=== PATIENT | female | born 1945 | race Caucasian/White ===

== ENCOUNTER 2018-08-06 19:39 | Emergency (ER) | payer OTHER, MEDICARE ==
--- NOTE | 2018-08-06 20:43 | EDPHY ---
HPI/HX/ROS/PE/MDM Narrative: CHIEF COMPLAINT: Right eye vision change HPI: The patient is a 72-year-old female with a history of prior cataract surgery. She has no history of cardiovascular or neurologic disease. At approximately 10:30 a.m. This morning, she had sudden onset of painless alvarez/ splint awaiting spots in her right eye only. This initially showed up as a crescent shape but has since largely resolved with only some alvarez spots remaining. She does complain of a mild ache to her right eye. She has completely normal vision in her left eye. She denies facial numbness, weakness or difficulty walking. REVIEW OF SYSTEMS: Aside from elements discussed in the HPI, a comprehensive 10-point review of systems was reviewed and is negative. PMH: Includes multiple surgeries, cataract surgery, no history of stroke. SOCIAL HISTORY: Visiting from [place]. Denies drug abuse. PHYSICAL EXAM: General:Patient is alert, in no acute distress. ENT:Eyes are normal to inspection. ENT inspection normal. Pupils equal round reactive to light bilaterally. Funduscopic exam limited by contracted pupils but no obvious hemorrhage or abnormality seen. Neck: Normal inspection. Full range of motion. Respiratory:No respiratory distress. Breath sounds normal bilaterally. Cardiovascular: Regular rate and rhythm. Strong peripheral pulses. Normal cap refill. Neuro: Oriented x3. Normal motor function. Normal sensory function. Cranial nerves 2-12 intact. No pronator drift. Normal gait. Normal speech. EOMI. ED Course: The intra-ocular pressure as measured with the tonometer is [address] Wright from Ophthalmology at 8:45 p.m.. He is in agreement with the plan to discharge the patient home and he will see her 1st thing in the morning. The patient is comfortable with this plan. MDM: This patient presents with monocular visual symptoms. I see no signs of stroke , glaucoma, foreign body or eye trauma. I think retinal detachment is much less likely but needs to be ruled out by an front end technician. General Time Seen by Provider: 08/06/18 19:56 Initial Vital Signs: Initial Vital Signs Temperature (C) 36.7 C 08/06/18 19:41 Heart Rate 77 08/06/18 19:41 Respiratory Rate 17 08/06/18 19:41 Blood Pressure 140/81 H 08/06/18 19:41 O2 Sat (%) 96 08/06/18 19:41 O2 Delivery Mode Room Air Allergies/Adverse Reactions: ibuprofen Allergy (Intermediate, Verified 08/06/18 19:40) ULCER povidone-iodine [From Betadine] Allergy (Intermediate, Verified 08/06/18 19:40) BLISTER soap [From Betadine] Allergy (Intermediate, Verified 08/06/18 19:40) BLISTER amoxicillin trihydrate [From Augmentin] Allergy (Unknown, Verified 08/06/18 19: 40) bupropion HCl [From Wellbutrin] Allergy (Unknown, Verified 08/06/18 19:40) potassium clavula *RETIRED-06/18/12 [From Augmentin] Allergy (Unknown, Verified 08/06/18 19:40) sulfamethoxazole [From Bactrim] Allergy (Unknown, Verified 08/06/18 19:40) trimethoprim [From Bactrim] Allergy (Unknown, Verified 08/06/18 19:40) Home Medications: Medication Instructions Recorded ARIPiprazole [Abilify 5 mg (*)] 5 mg PO HS 06/14/14 Ascorbic Acid [Vitamin C 500 mg 1,000 mg PO DAILY 06/14/14 (*)] Aspirin [Aspirin 81mg (*)] 81 mg PO DAILY 06/14/14 Calcium Carb W/Vit D [Calcium Carb 500 mg PO BID 06/14/14 W/Vit D 500/200 (*)] Citalopram Hydrobromide [Celexa] 40 mg PO DAILY 06/14/14 Clorazepate Dipotassium [Tranxene 7.5 mg PO DAILY PRN 06/14/14 T-Tab (*)] Herbals/Supplements -Info Only 1 ea PO DAILY 06/14/14 Levothyroxine [Synthroid 200 mcg 200 mcg PO DAILY06 06/14/14 (*)] Mirtazapine [Remeron] 60 mg PO HS 06/14/14 Multivitamins [Multivitamin (*)] 1 each PO DAILY 06/14/14 lamoTRIgine [LamICTAL 100 MG (*)] 200 mg PO BID 06/14/14 traMADol [Ultram 50 mg (*)] 50 mg PO TID 06/14/14 Myrbetriq 08/06/18 Departure - Departure Disposition: Home, Routine, Self-Care Clinical Impression: Visual loss, right eye Condition: Good Instructions: Blurred Vision (ED) Additional Instructions: Call the office of Dr. Wright tomorrow after 8am and they will arrange for evaluation tomorrow. Return to the ED for worsening headache, loss of vision or other concerns. Referrals: Dedrick Wright MD [Medical Doctor] - As per Instructions
[2018-08-06 21:05] VITALS: BP 120/85
== END 2018-08-06 21:04 | disposition home or self-care (01) ==
DX: H53.9 Unspecified visual disturbance (principal); Z86.79 Personal history of other diseases of the circulatory system; Z86.69 Personal history of other diseases of the nervous system and sense organs

== ENCOUNTER 2018-08-09 19:19 | Emergency (ER) | payer OTHER, MEDICARE ==
[2018-08-09 19:33] VITALS: BP 153/72
[2018-08-09] MEDS ORDERED: AZITHROMYCIN 250 MG TAB PO ONE (19:38)
--- NOTE | 2018-08-09 19:40 | EDPHY ---
H & P Stated Complaint: RIGHT EAR PAIN, [facility] hemmorhage BEHIND RIGHT EYE Time Seen by Provider: 08/09/18 19:36 HPI/ROS: CHIEF COMPLAINT: Right ear pain HISTORY OF PRESENT ILLNESS: The patient is a 72-year-old female who comes to the emergency department complaining right-sided ear pain that began yesterday morning. No fever. No sinus congestion or sore throat. She was here 2 days ago with a retinal hemorrhage. She followed up with Ophthalmology yesterday . No trauma. No dizziness. No headache. She states that her [place] she has not been able to clear her ear. Severity: Moderate Modifying factors: None REVIEW OF SYSTEMS: Constitutional: denies: chills, fever, recent illness, recent injury EENTM: See HPI denies: blurred vision, double vision, nose congestion Respiratory: denies: cough, shortness of breath Cardiac: denies: chest pain, irregular heart rate, lightheadedness, palpitations Gastrointestinal/Abdominal: denies: abdominal pain, diarrhea, nausea, vomiting, blood streaked stools Genitourinary: denies: dysuria, frequency, hematuria, pain Musculoskeletal: denies: joint pain, muscle pain Skin: denies: lesions, rash, jaundice, bruising Neurological: denies: headache, numbness, paresthesia, tingling, dizziness, weakness Hematologic/Lymphatic: denies: blood clots, easy bleeding, easy bruising Immunologic/allergic: denies: HIV/AIDS, transplant 10 systems reviewed and negative except as noted EXAM: GENERAL: Well-appearing, well-nourished and in no acute distress. HEAD: Atraumatic, normocephalic. EYES: Pupils equal round and reactive to light, extraocular movements intact, sclera anicteric, conjunctiva are normal. ENT: Right-sided purulent effusion behind the tympanic membrane. Mild erythema. No drainage pain nares patent, oropharynx clear without exudates. Moist mucous membranes. NECK: Normal range of motion, supple without lymphadenopathy or JVD. LUNGS: Breath sounds clear to auscultation bilaterally and equal. No wheezes rales or rhonchi. HEART: Regular rate and rhythm without murmurs, rubs or gallops. ABDOMEN: Soft, nontender, normoactive bowel sounds. No guarding, no rebound. No masses appreciated. BACK: No CVA tenderness, no spinal tenderness, step-offs or deformities EXTREMITIES: Normal range of motion, no pitting or edema. No clubbing or cyanosis. NEUROLOGICAL: Cranial nerves II through XII grossly intact. Normal speech, normal gait. 5/5 strength, normal movement in all extremities, normal sensation , normal reflexes PSYCH: Normal mood, normal affect. SKIN: Warm, dry, normal turgor, no visible rashes or lesions. Source: Patient Exam Limitations: No limitations - Personal History Current Tetanus/Diphtheria Vaccine: Yes Tetanus Vaccine Date: 2011 - Medical/Surgical History Hx Asthma: No Hx Chronic Respiratory Disease: No Hx Diabetes: No Hx Cardiac Disease: No Hx Renal Disease: No Hx Cirrhosis: No Hx Alcoholism: No Hx HIV/AIDS: No Hx Splenectomy or Spleen Trauma: No Other PMH: medical ovarian cancer, polio, , major depression. surgery tonsillectomy, Hysterectomy, appendectomy, skin cancer , rotator cuff relpair, reverse shoulder replacement, foot surgery, appy,gallbladdre, carpal tunel release, bunionectomy,bladder sling surg, right knee, left knee, laminectomy, left footsurg - Family History Significant Family History: No pertinent family hx - Social History Smoking Status: Never smoked Alcohol Use: Sober Drug Use: None Constitutional: Initial Vital Signs Temperature (C) 36.6 C 08/09/18 19:30 Heart Rate 73 08/09/18 19:30 Respiratory Rate 18 08/09/18 19:30 Blood Pressure 153/72 H 08/09/18 19:30 O2 Sat (%) 96 08/09/18 19:30 O2 Delivery Mode Room Air Allergies/Adverse Reactions: ibuprofen Allergy (Intermediate, Verified 08/09/18 19:33) ULCER povidone-iodine [From Betadine] Allergy (Intermediate, Verified 08/09/18 19:33) BLISTER soap [From Betadine] Allergy (Intermediate, Verified 08/09/18 19:33) BLISTER bupropion HCl [From Wellbutrin] Allergy (Unknown, Verified 08/09/18 19:33) potassium clavula *RETIRED-06/18/12 [From Augmentin] Allergy (Unknown, Verified 08/06/18 19:40) sulfamethoxazole [From Bactrim] Allergy (Unknown, Verified 08/09/18 19:33) trimethoprim [From Bactrim] Allergy (Unknown, Verified 08/09/18 19:33) Home Medications: Medication Instructions Recorded Ascorbic Acid [Vitamin C 500 mg 1,000 mg PO DAILY 06/14/14 (*)] Calcium Carb W/Vit D [Calcium Carb 500 mg PO BID 06/14/14 W/Vit D 500/200 (*)] Clorazepate Dipotassium [Tranxene 7.5 mg PO DAILY PRN 06/14/14 T-Tab (*)] Herbals/Supplements -Info Only 1 ea PO DAILY 06/14/14 Levothyroxine [Synthroid 200 mcg 200 mcg PO DAILY06 06/14/14 (*)] Mirtazapine [Remeron] 60 mg PO HS 06/14/14 Multivitamins [Multivitamin (*)] 1 each PO DAILY 06/14/14 lamoTRIgine [LamICTAL 100 MG (*)] 200 mg PO BID 06/14/14 Myrbetriq 08/06/18 Ambien 08/09/18 Azithromycin 250 mg PO DAILY #4 tablet 08/09/18 Vitamin B12 08/09/18 Medical Decision Making ED Course/Re-evaluation: The patient has otitis media clearly. I will start her on azithromycin. She is happy with this. We discussed pain control as well. She has had success with Aleve. We discussed indications for returning. Differential Diagnosis: Partial list of the Differential diagnosis considered include but were not limited to; otitis media, perforation, berotitis and although unlikely based on the history and physical exam, I also considered vestibulitis, head injury, vascular disease. I discussed these differential diagnoses and the plan with the patient as well as the usual and expected course. The patient understands that the diagnosis is provisional and that in medicine we are not always correct and that further workup is often warranted. Usual and customary warnings were given. All of the patient's questions were answered. The patient was instructed to return to the emergency department should the symptoms at all worsen or return, otherwise to followup with the physician as we discussed. - Data Points Medications Given: Discontinued Medications Azithromycin (Zithromax) 500 mg PO EDNOW ONE PRN Reason: Protocol Stop: 08/09/18 19:39 Last Admin: 08/09/18 19:47 Dose: 500 mg Departure - Departure Disposition: Home, Routine, Self-Care Clinical Impression: Otitis media, right Qualifiers: Otitis media type: suppurative Chronicity: acute Recurrence: not specified as recurrent Spontaneous tympanic membrane rupture: without spontaneous rupture Qualified Code(s): H66.001 - Acute suppurative otitis media without spontaneous rupture of ear drum, right ear Condition: Fair Instructions: Ear Infection (ED) Referrals: Patient,NotPresent [Primary Care Provider] - As per Instructions Tej Liang MD [Medical Doctor] - 2-3 days, if not improved Prescriptions: Azithromycin 250 mg PO DAILY #4 tablet
== END 2018-08-09 19:48 | disposition home or self-care (01) ==
DX: H66.001 Acute suppurative otitis media without spontaneous rupture of ear drum, right ear (principal)